=== PATIENT | male | born 1955 | race American Indian/Alaskan Native ===

== ENCOUNTER 2016-11-28 13:38 | Outpatient (CLI) | payer OTHER ==
--- NOTE | 2016-11-30 12:27 | Magnetic Resonance Report ---
MRI LEFT SHOULDER WITHOUT CONTRAST: 11/28/16 CLINICAL: Left shoulder pain. TECHNIQUE: Coronal T1, coronal T2, coronal proton density fat saturation, sagittal proton density fat saturation and axial gradient echo T* sequences on a 1.5 Roxi magnet. FINDINGS: The quality of the examination is degraded by motion. Several sequences were repeated. Type II acromion and moderate acromioclavicular joint arthritis. Increased T1 and T2 signal in the supraspinatus tendon. A 6 mm humeral cyst deep to the supraspinatus insertion. The rest of the rotator cuff is intact. Intact glenoid labrum and biceps tendon. No joint effusion. Subacromial and subdeltoid fluid. Normal marrow signal with no bone contusion or fracture. IMPRESSION: 1. Supraspinatus tendinosis. 2. Moderate acromioclavicular joint arthritis.
== END 2016-11-28 13:39 | disposition home or self-care (01) ==
LOC: MRI 13:38
PROVIDERS: ATTEND Family Medicine Adult Medicine
DX: M19.011 Primary osteoarthritis, right shoulder (principal); M25.812 Other specified joint disorders, left shoulder

== ENCOUNTER 2020-05-15 09:30 | Outpatient (CLI) | payer MEDICARE, OTHER ==
[2020-05-15 10:17] LABS: Erythrocyte Sedimentation Rate 1 mm/Hr (0-20)
[2020-05-15 10:23] LABS: Hematocrit 42.3 % (35.5-45.6); Hemoglobin 14.7 gm/dl (11.8-15.2); Mean Corpuscular HGB Conc 35 % (32-34); Mean Corpuscular Volume 111 fl (84-94); Platelet Count 219 K/mm3 (140-440); Red Blood Count 3.81 M/mm3 (3.65-5.03)
[2020-05-15 10:31] LABS: Alanine Aminotransferase 24 units/L (7-56); BUN/Creatinine Ratio 11; Blood Urea Nitrogen 10 mg/dL (9-20); Calcium 9.1 mg/dL (8.4-10.2); Hemolysis Index 4
[2020-05-18 22:55] LABS: Albumin 3.9 g/dL (3.8-4.8)
== END 2020-05-15 09:31 | disposition home or self-care (01) ==
LOC: LAB 09:30
PROVIDERS: ATTEND Specialist
DX: G65.1 Sequelae of other inflammatory polyneuropathy (principal); G62.9 Polyneuropathy, unspecified; R73.03 Prediabetes
CPT/HCPCS: 36415; 80053; 82607; 83036; 83921; 84165; 84443; 85027; 85652; 86038; 86334; 86592

== ENCOUNTER 2020-05-22 08:47 | Outpatient (CLI) | payer MEDICARE, OTHER ==
--- NOTE | 2020-05-22 14:23 | Vascular Lab Report ---
DUPLEX DOPPLER LOWER EXTREMITY ARTERIAL, BILATERAL INDICATION / CLINICAL INFORMATION: PERIPHERAL VASCULAR DISEASE. TECHNIQUE: Arterial duplex examination of both lower extremities performed using B-mode, color flow a nd spectral Doppler assessment. FINDINGS: RIGHT: Common Femoral Artery: PSV 84 cm/sec. Triphasic waveform. Proximal SFA: PSV 116 cm/sec. Triphasic waveform. Mid SFA: PSV 91 cm/sec. Triphasic waveform. Distal SFA: PSV 101 cm/sec. Triphasic waveform. Popliteal artery: PSV 2 cm/sec. Triphasic waveform. Posterior tibial artery: PSV 101 cm/sec. Triphasic waveform. Dorsalis Pedis Artery: PSV 56 cm/sec. Triphasic waveform. LEFT: Common Femoral Artery: PSV 89 cm/sec. Triphasic waveform. Proximal SFA: PSV 106 cm/sec. Triphasic waveform. Mid SFA: PSV 85 cm/sec. Triphasic waveform. Distal SFA: PSV 86 cm/sec. Triphasic waveform. Popliteal artery: PSV 72 cm/sec. Triphasic waveform. Posterior tibial artery: PSV 97 cm/sec. Triphasic waveform. Dorsalis Pedis Artery: PSV 33 cm/sec. Triphasic waveform. Right SHANNAN: Not performed. Left SHANNAN: Not performed. IMPRESSION: 1. Minimal plaque noted in bilateral legs without evidence of significant lower extremity peripheral artery disease.. Ankle-Brachial Index (SHANNAN): - Calcified arteries > 1.4 - Normal = 0.9-1.4 - Mild PAD = 0.7-0.89 - Moderate PAD = 0.51-0.69 - Severe PAD < 0.5 Doppler Waveform: - Triphasic is normal. - Biphasic is abnormal if clear transition from triphasic signal along vascular tree. - Monophasic is abnormal. Scribed by: QUINTEN Ty RDMST Scribed: 05/22/2020 1:04 PM Signer Name: Kb Carter MD Signed: 05/22/2020 2:18 PM Workstation Name: [id number]
== END 2020-05-22 08:48 | disposition home or self-care (01) ==
LOC: VAS 08:47
PROVIDERS: ATTEND Specialist
DX: I70.213 Atherosclerosis of native arteries of extremities with intermittent claudication, bilateral legs (principal)
CPT/HCPCS: 93925